=== PATIENT | female | born 1975 | race Caucasian/White ===

== ENCOUNTER 2019-03-09 18:52 | Emergency (ER) | payer BC, MEDICAID, SELFPAY ==
[2019-03-09 18:52] VITALS: BP 144/111; PULSE 98; RESP 18; TEMP 36.9; O2SAT 94; BMI 34.2
--- NOTE | 2019-03-09 19:29 | EKG12_ITS ---
Test Reason : CP Blood Pressure : / mmHG Vent. Rate : 086 BPM Atrial Rate : 086 BPM P-R Int : 148 ms QRS Dur : 084 ms QT Int : 382 ms P-R-T Axes : 050 079 046 degrees QTc Int : 457 ms Normal sinus rhythm Normal ECG Confirmed by ALEXANDER CHO, JENNIFER ([id number]), editor news HUNTER PACHECO ([id number]) on 03/11/2019 2:07:15 PM Referred By: MELCHOR Confirmed By:JENNIFER MUNOZ MD
--- NOTE | 2019-03-09 19:30 | RAD_ITS ---
STUDY: X-RAY CHEST REASON FOR EXAM: Female, 44 years old. Chest pain TECHNIQUE: Single AP portable view of the chest. COMPARISON: None. FINDINGS: The lungs are clear and expanded. There is no demonstrated pleural abnormality. Normal size heart. Normal mediastinum and megan. Normal visualized pulmonary arteries. Normal visualized aortic arch and descending thoracic aorta. Normal visualized thoracic spine. Normal visualized ribs, clavicles, and shoulders. There is no demonstrated abnormality of the visualized soft tissue structures of the upper abdomen. RAD/Chest 1 View (Portable) IMPRESSION: Normal x-ray examination of the chest. Electronically Signed: Adin Fritz MD at 19:50 EST , Service support ,
[2019-03-09] MEDS: 0.9% Normal Saline 1,000 ML 1000 ML IV (19:34)
[2019-03-09 19:52] VITALS: BP 122/109; PULSE 83; RESP 14; O2SAT 97
[2019-03-09 19:55] LABS: Absolute Lymphocyte Count 1.48 X10^3/uL (0.83-4.51); Absolute Neutrophil Count 2.9 X10^3/uL (2.0-7.7); Basophil# 0.02 X10^3/uL; Basophil% 0.4 % (0-1); Eosinophil# 0.01 X10^3/uL; Eosinophils% 0.2 % (0-5); Hematocrit 42.4 % (37-47); Lymphocyte # 1.48 X10^3/ul (4.0); Lymphocyte % 29.3 % (19-41); Mean Corpuscular Hgb 30.2 pg (27.0-32.0); Mean Corpuscular Volume 91.4 fL (81-99); Mean Platelet Vol. 10.1 fl (6.2-12.0); Monocyte% 11.9 % (0-10); NRBC Flagged by Analyzer 0 % (0-5); Neutrophil # 2.93 X10^3/uL (2.7-7.7); Platelet Count 308 K/mm3 (150-450); RBC Distribution Width CV 12.7 % (11.6-14.6); RBC Distribution Width SD 42.1 fl (35.1-43.9); Red Blood Count 4.64 M/mm3 (4.2-5.4); White Blood Count 5.1 K/mm3 (4.4-11.0)
[2019-03-09 20:06] LABS: Internal QC Validated? YES +Cl - CLEAR BKGD; Pregnancy, Serum, hCG Quali. NEGATIVE Negative
[2019-03-09 20:14] LABS: Anion Gap 7 (5-15); BUN 14 mg/dL (7-18); BUN/Creat Ratio 15.1 RATIO (10-20); Calcium,Total 9.2 mg/dL (8.5-10.1); Chloride 106 mmol/L (98-107); Creatinine, Serum 0.93 mg/dL (0.55-1.02); EST Glomerular Filtration Rate 70 mL/min (>60); Est Glom Filt Rate - Afr Amer 85 mL/min (>60); Estimated Creatinine Clearance 67.35 ml/min; Glucose 90 mg/dL (74-106); Potassium 3.6 mmol/L (3.5-5.1); Sodium Level 137 mmol/L (136-145); Thyroid Stim Hormone (TSH) 1.37 uIU/mL (0.358-3.74)
[2019-03-09 20:52] VITALS: BP 127/102; PULSE 77; RESP 12; O2SAT 98
[2019-03-09 20:55] LABS: D-Dimer Quantitative (DVT/PE) 0.39 FEU/ug/m (0.27-0.49)
--- NOTE | 2019-03-09 21:41 | ED.VISSUMM ---
- ER Visit Summary Date of Service: 03/09/19 Chief Complaint: Palpitations History of Present Illness: The patient is a [address] Campbell. She reports that she has palpitations that began yesterday. These are 15-32nd episodes where she feels as though her heart is beating irregular and fast. She gets lightheaded, diaphoretic, short of breath, and develops a sharp chest pain during these episodes. She reports she had one episode yesterday while driving. She has had 4-5 episodes today. She has not passed out. She denies any chest pain with exertion. She denies any ankle swelling or calf pain. Patient does have a family history of coronary disease. She has no family history of syncope. No personal history of DVT. No recent travel. Physical Examination: Vitals: Stable. Afebrile. General: Well-nourished and well-developed. Head: Normocephalic atraumatic. Neck: Supple, no lymphadenopathy. No JVD. Nontender. Cardiovascular: Regular rate and rhythm. No murmurs. Respiratory: No respiratory distress. Clear to auscultation bilaterally. Abdominal: Soft, nontender, nondistended, normal bowel sounds. No guarding, rebound, or peritoneal signs. Back: Nontender. Extremities: Nontender, no edema. Skin: Normal color, no rash. Neurologic: Alert and oriented ?3. Cranial nerves II through XII are intact. Normal strength and sensation. Psych: Normal affect. Test Results: EKG is sinus at 86 with no acute changes. Troponin is negative. D-dimer is negative. test is negative. Chem-7 is normal. CBC shows monocytes of 12. TSH is normal. Chest x-ray is normal. Emergency Department Course and Treatment: Patient is given a liter of normal saline. She is resting comfortably. Treatment Plan: The patient was discussed with Dr. Weiss. He asked that she have a 48-hour Holter monitor placed and have her follow-up later this week. This was ordered. However, somehow this was missed prior to the patient's discharge. The patient will be contacted and instructed to return to the emergency department or to cardiovascular services to have this put on as an outpatient. Return to the emergency department for any worsening symptoms. Disposition: To home in improved and stable condition. Impression: 1. Palpitations. This note was generated with Dragon dictation software. It may contain incorrect words, spelling, and punctuation that were not noted in review of the chart prior to signing ED Disposition - Plan for ED Patient: Disposition: Home or Assisted Living Instructions: Palpitations Referrals: Miguel Weiss MD [STAFF PHYSICIAN] - 1 Week
[2019-03-09 22:00] VITALS: BP 124/105; PULSE 83; PULSE 86; RESP 23; O2SAT 97
== END 2019-03-09 22:01 | disposition home or self-care (01) ==
LOC: ED 19:46
PROVIDERS: Emergency Provider Emergency Medicine; Family Provider Internal Medicine; PCP Internal Medicine
DX: R00.2 Palpitations (principal); R07.9 Chest pain, unspecified; R06.00 Dyspnea, unspecified; R51 Headache; R42 Dizziness and giddiness; R61 Generalized hyperhidrosis; Z87.891 Personal history of nicotine dependence
CPT/HCPCS: 71045; 80048; 84443; 84484; 84703; 85025; 85379; 93005; 96360; 96361; 99284; J7030; A4216

== ENCOUNTER → 2019-03-10 00:17 | Outpatient (CLI) | payer BC, MEDICAID, SELFPAY ==
[2019-03-09 18:52] VITALS: BMI 34.2
== END ==
PROVIDERS: Family Provider Internal Medicine; PCP Internal Medicine; Referring Provider Emergency Medicine; Visit Provider Emergency Medicine
DX: R00.2 Palpitations (principal)
CPT/HCPCS: 93225; 93226

== ENCOUNTER → 2019-11-19 17:38 | Outpatient (CLI) | payer BC, MEDICAID, SELFPAY | PROVIDERS: PCP Internal Medicine; Referring Provider Internal Medicine; Visit Provider Internal Medicine | DX: R05 Cough (principal); R06.00 Dyspnea, unspecified; R43.0 Anosmia; Z20.9 Contact with and (suspected) exposure to unspecified communicable disease | CPT/HCPCS: 87635; 94799; U0003 ==